=== PATIENT | female | born 1975 | race African-American/Black ===

== ENCOUNTER 2020-07-15 06:31 | Day surgery (SDC) | payer OTHER, BC ==
[~2020-07-15] VITALS: Ht 172.7 cm; Wt 113.9 kg
[~2020-07-15 06:31] MED LIST: LOSARTAN-HCTZ1 EAC1 PO; TESTOSTERONE IM; TOPAMAX50 MG PO
[2020-07-15 06:58] LABS: CALCIUM 9.2 mg/dL (8.5-10.1); CARBON DIOXIDE 27.5 mmol/L (21.0-32.0); CREATININE - SERUM 1.1 mg/dL (0.6-1.3); POTASSIUM - SERUM 3.5 mmol/L (3.5-5.1)
[2020-07-15 07:07] LABS: BASOPHILS 0.4 % (0-2); EOSINOPHILS 1.5 % (0-7); HEMATOCRIT 40.1 % (36.0-48.0); HEMOGLOBIN 13.3 g/dL (12-16); IMMATURE GRANULOCYTES 0.1 % (0-5); LYMPHOCYTE ABS# 1.13 10x3/uL (1.18-3.74); LYMPHOCYTES 16.4 % (15-50); MCH 27.7 pg (26.0-34.0); MCHC 33.2 g/dL (31.0-37.0); MCV 83.4 fL (80.0-100.0); MEAN PLATELET VOLUME 9.5 fL (7.4-10.4); MONOCYTES 5.4 % (2-11); NEUTROPHIL ABS# 5.23 10x3/uL (1.56-6.13); NEUTROPHILS 76.2 % (40-80); PLATELET COUNT 237 10x3/uL (130-400); RBC 4.81 10x6/uL (4.00-5.40); WBC 6.9 10x3/uL (4.8-10.8)
[2020-07-15] MEDS ORDERED: ARMOUR THYROID30 MG PO (08:28)
[2020-07-15 08:40] VITALS: BP 125/70; Ht 172.7 cm; Wt 113.9 kg
--- NOTE | 2020-07-15 17:01 | NUR ---
1225 MEDICATED FOR PAIN. 1300 PT VOIDED AND ABLE TO WALK TO BATHROOM. STATED HER PAIN WAS UNRELIEVED BUT PT WAS SLOW TO AWAKEN. 1325 IV REMOVED AND INSTRUCTIONS GIVEN.
== END 2020-07-15 13:45 | disposition home or self-care (01) ==
LOC: D.OPS 06:31
PROVIDERS: Anesthesiology; ATTEND Obstetrics & Gynecology Maternal & Fetal Medicine
DX: N83.202 Unspecified ovarian cyst, left side (principal); R10.2 Pelvic and perineal pain